=== PATIENT | male | born 1970 | race Asian ===

== ENCOUNTER → 2017-07-28 | Outpatient (CLI) | payer OTHER | LOC: BMCIMAGING 08:38 | PROVIDERS: ATTEND Podiatrist Foot & Ankle Surgery | DX: M21.612 Bunion of left foot (principal) ==

== ENCOUNTER 2017-10-13 14:56 | Emergency (ER) | payer OTHER ==
--- NOTE | 2017-10-13 16:20 | EDPHY ---
H & P Stated Complaint: possible allergic rxn to Amox. Time Seen by Provider: 10/13/17 16:16 HPI/ROS: HPI: This is a 46-year-old male presents with Chief Complaint: Lower abdominal pain Location: Lower abdominal Quality: Pain Duration: 1 day Signs and Symptoms: no fever, no nausea, no vomiting, no hematemesis, no blood in stool, no abdominal bloating, no diarrhea, no back pain, no urinary symptoms , no testicular/groin pain, no indigestion, no chest pain, no shortness of breath Timing: Sudden Severity: Moderate Context: Patient reports that she has a history of diverticulosis and diverticulitis with perforation and subsequent colon resection presents with 1 day history of lower abdominal pain that is described as deep and tight in nature. He went to see his PCP today who did a physical exam but no lab/ imaging and diagnosed him with presumed diverticulitis. Started him on Augmentin. Patient took 1 dose and within 20 min started to break out in a rash and feel shortness of breath. He immediately drove himself to the emergency room. He is adamantly refusing any labs or imaging as he has a handicapped child at home and has not met his deductible this year. Denies fevers, nausea, vomiting, diarrhea, urinary symptoms, testicular groin pain. Denies shortness of breath, palpitations, wheezing, difficulty swallowing, difficulty speaking. Modifying Factors: Amoxicillin Comment: ROS: see HPI Constitutional: No fever, no chills, no weight loss Eyes: No blurred vision Respiratory: No shortness of breath, no cough Cardiovascular: No chest pain, no palpitations Gastrointestinal: No nausea, no vomiting, no diarrhea, no hematemesis, no blood in stool Genitourinary: No dysuria, no blood in urine Extremities: No myalgias, no edema Neurologic: No weakness, no numbness Skin: No rashes, no petechiae Hematologic: No bruising, no bleeding MEDICAL/SURGICAL/SOCIAL HISTORY: Medical history: Generally healthy. Does not take any regular medications. Surgical history: Denies Social history: CONSTITUTIONAL: Nontoxic appearance adult white male, awake and alert, no obvious distress HEENT: Atraumatic and normocephalic, PERRL, EOMI. Tympanic membranes clear. Oropharynx clear, no exudate and moist pink mucosa. Airway patent. No lymphadenopathy. No meningismus. Cardiovascular: Normal S1/S2, regular rate, regular rhythm, without murmur rub or gallop. PULMONARY/CHEST: Symmetrical and nontender. Clear to auscultation bilaterally. Good air movement. No accessory muscle usage. ABDOMEN: Soft, nondistended, lower abdominal mild tenderness with palpation, no rebound, no guarding, no peritoneal signs, no masses or organomegaly. No CVAT. EXTREMITIES: 2/2 pulses, strength 5/5, no deformities, no clubbing, no cyanosis or edema. NEUROLOGICAL: no focal neuro deficits. GCS 15. SKIN: Warm and dry, no erythema. no rash. Good capillary refill. Source: Patient Exam Limitations: No limitations - Personal History Current Tetanus/Diphtheria Vaccine: Yes Current Tetanus Diphtheria and Acellular Pertussis (TDAP): Yes - Medical/Surgical History Hx Asthma: No Hx Chronic Respiratory Disease: No Hx Diabetes: No Hx Cardiac Disease: No Hx Renal Disease: No Hx Cirrhosis: No Hx Alcoholism: No Hx HIV/AIDS: No Hx Splenectomy or Spleen Trauma: No Other PMH: diverticulitis, partial colon removed, fasciotomy due to leg fx and infection - Social History Smoking Status: Current some day smoker Constitutional: Initial Vital Signs Temperature (C) 37.0 C 10/13/17 14:59 Heart Rate 90 10/13/17 14:59 Respiratory Rate 18 10/13/17 14:59 Blood Pressure 136/103 H 10/13/17 14:59 O2 Sat (%) 97 10/13/17 14:59 O2 Delivery Mode Room Air Allergies/Adverse Reactions: No Known Allergies Allergy (Unverified 02/24/12 16:59) Home Medications: Medication Instructions Recorded AMOXICILLIN 10/13/17 Medical Decision Making ED Course/Re-evaluation: Vital signs stable. Patient adamantly refused labs urinalysis CT abdomen and pelvis scan. He wants to sign out AMA. I did convince him to wait calls primary care provider. A call Dr. Price's office and spoke with her Dr. Miranda who reviewed her progress note for today. He feels comfortable calling in Cipro and Flagyl as patient has had these medications in the past without adverse reaction. He is to follow up early next week with Dr. rPice. No signs of sepsis/anaphylaxis/angioedema/airway compromise/respiratory distress This patient was seen under the supervision of my primary supervising physician. I evaluated care for this patient independently. Patient's presentation, labs/imaging, treatment and plan of care were discussed with primary supervising physician. Differential Diagnosis: Abdominal pain including but not limited to appendicitis, cholecystitis, gastritis and urinary tract infection. Departure - Departure Disposition: Home, Routine, Self-Care Clinical Impression: History of diverticulitis Medication side effects Qualifiers: Encounter type: initial encounter Qualified Code(s): T88.7XXA - Unspecified adverse effect of drug or medicament, initial encounter Condition: Good Instructions: Diverticulitis (ED) Additional Instructions: Call Dr. Price's office tomorrow for follow-up date and time. Stop taking Augmentin. Dr. Can will call in [employer] to your pharmacy and you can pick it up this evening. Please follow diverticular diet. If at any time he have fever, increased abdominal pain, nausea, vomiting; please return to the emergency immediately for re-evaluation. Referrals: Jazmine Price MD [Primary Care Provider] - As per Instructions
[2017-10-13 16:42] VITALS: BP 120/90; PULSE 79; RESP 16; TEMP 98.6; O2SAT 95
== END 2017-10-13 16:42 | disposition home or self-care (01) ==
DX: R21 Rash and other nonspecific skin eruption (principal); T36.0X5A Adverse effect of penicillins, initial encounter; F17.200 Nicotine dependence, unspecified, uncomplicated; Z87.19 Personal history of other diseases of the digestive system